=== PATIENT | female | born 1990 | race African-American/Black ===

== ENCOUNTER 2018-08-08 16:40 | Emergency (ER) | payer SELFPAY ==
[~2018-08-08] VITALS: Ht 160 cm; Wt 72.3 kg
[2018-08-08 16:48] VITALS: BP 118/94
--- NOTE | 2018-08-08 16:52 | NUR ---
PT AMBULATES TO BED 2
--- NOTE | 2018-08-08 17:05 | NUR ---
PT. AMBULATES TO BED 2 WITH C/O LT UPPER & LOWER EXTREMITY PAIN 8/10, BL FOOT PAIN 10/10 ON AMBULATION BARE FOOTED; DX WITH NEUROPTATHY LAST MARCH 2018, SCOLIOSIS WHEN SHE WAS 11; DENIES RECENT INJURY. PT STATES " I JUST MOVED TO [place] FROM [place] AND I RAN OUT OF MY MEDICATION AND THE SYMPTOMS HAVE GOTTEN WORSE NOW IT IS IN MY ARM AND BEFORE IT WAS JUST IN MY LEG". DENIES ANY URINARY INCONTINENCE OR LOSS OF BLADDER CONTROL. ER MD MADE AWARE. SAFETY PRECAUTIONS IMPLEMENTED. WILL CONTINUE TO MONITOR.
--- NOTE | 2018-08-08 17:45 | NUR ---
ER MD ROSAS AT BEDSIDE EVALUATING PATIENT
[2018-08-08 18:02] VITALS: BP 120/92
--- NOTE | 2018-08-08 18:02 | NUR ---
Patient discharged with v/s stable. Written and verbal after care instructions given and explained. Patient alert, oriented and verbalized understanding of instructions. Ambulatory with steady gait. All questions addressed prior to discharge. ID band removed. Patient advised to follow up with PMD. Rx of GABAPENTIN 300MG given. Patient educated on indication of medication including possible reaction and side effects. Opportunity to ask questions provided and answered.
== END 2018-08-08 18:02 | disposition home or self-care (01) ==
LOC: EDSEX 16:40 → MED 16:40
DX: G62.9 Polyneuropathy, unspecified (principal)
CPT/HCPCS: 99283